=== PATIENT | male | born 2005 | race Caucasian/White ===

== ENCOUNTER 2024-11-04 20:16 | Emergency (ER) | payer MEDICAID ==
[~2024-11-04] VITALS: Ht 172.7 cm; Wt 78.0 kg
[2024-11-04 20:30] VITALS: TEMP 37; O2SAT 100
[2024-11-04 21:07] LABS: CLARITY URINE CLEAR (CLEAR); COLOR URINE YELLOW (YELLOW); GLUCOSE URINE NEGATIVE (NEGATIVE); KETONES URINE NEGATIVE (NEGATIVE); LEUKOCYTE ESTERASE URINE NEGATIVE (NEGATIVE); NITRITE URINE NEGATIVE (NEGATIVE); OCCULT BLOOD URINE NEGATIVE (NEGATIVE); PH URINE 6.0 (4.5-8.0); PROTEIN URINE NEGATIVE (NEGATIVE); SPECIFIC GRAVITY URINE 1.006 (1.005-1.030); UROBILINOGEN URINE 0.2 E.U./dL (0.2-1.0)
[2024-11-04 21:07] LABS: BASOPHILS % 0.6 % (0.0-2.0); EOSINOPHILS % 7.5 % (0.0-5.0); HEMATOCRIT. 39.7 % (42.0-52.0); HEMOGLOBIN. 13.3 g/dL (14.0-18.0); LYMPHOCYTES % 44.3 % (20.0-50.0); MEAN PLATELET VOLUME 8.4 fl (7.4-10.4); MONOCYTES % 5.1 % (2.0-8.0); NEUTROPHILS % 42.5 % (40.0-76.0); PLATELET 324 x1000/uL (130-400); RED BLOOD CELL COUNT 4.94 mill/uL (4.7-6.1); RED CELL DISTRIBUTION WIDTH 14.1 % (11.6-14.6)
[2024-11-04 21:20] LABS: CREATININE 0.9 mg/dL (0.6-1.3)
[2024-11-04 21:21] LABS: UREA NITROGEN BLOOD 5 mg/dL (9-23)
[2024-11-04 21:22] LABS: ASPARTATE AMINOTRANSFERASE 17 IU/L (<34)
[2024-11-04 21:23] LABS: BILIRUBIN DIRECT 0.1 mg/dL (<=3.0); BILIRUBIN TOTAL 0.4 mg/dL (0.1-1.0); PROTEIN TOTAL 7.5 g/dL (6.0-8.3)
[2024-11-04] MEDS: ACETAMINOPHEN 160MG/5ML UDC PO ONE (21:38)
[2024-11-04] MEDS ORDERED: ACET-2084 MT (21:43)
[2024-11-04 21:59] VITALS: BP 127/64; PULSE 86; RESP 14; O2SAT 100
== END 2024-11-04 22:02 | disposition home or self-care (01) ==
LOC: ER 20:16
DX: R10.9 Unspecified abdominal pain (principal); F84.0 Autistic disorder
CPT/HCPCS: 36415; 74176; 80048; 80076; 81003; 85025; 99284